=== PATIENT | female | born 1945 | race Caucasian/White ===

== ENCOUNTER 2017-07-22 08:58 | Day surgery (SDC) | payer MEDICARE, BC ==
[~2017-07-22] VITALS: Ht 152.4 cm; Wt 69.6 kg
[~2017-07-22 08:58] MED LIST: ALLO300T46 PO; ASPI-664 PO; CLON0.2T12 PO; COL250 PO; CRES10 PO; ESOM40CA PO; HUM100VI8; HYDR-3581 PO; LANTUS; METO-103 PO; SITA1TAB3 PO
[2017-07-22 10:37] VITALS: Ht 152.4 cm; Wt 69.6 kg
[2017-07-22] MEDS ORDERED: janumet PO (10:43)
[2017-07-22] MEDS ORDERED: lotrel PO (10:43)
[2017-07-22] MEDS ORDERED: diovan PO (10:43)
[2017-07-22] MEDS ORDERED: insulin SC (10:44)
[2017-07-22] MEDS ORDERED: LINA145C PO (10:44)
[2017-07-22] MEDS ORDERED: PROPOFOL 40 ML ONE (10:58)
[2017-07-22] MEDS ORDERED: LIDOCAINE 2% (SDV) 5 ML INJ ONE (10:58)
[2017-07-22 11:06] VITALS: BP 215/90; PULSE 63; RESP 13
[2017-07-22] MEDS ORDERED: hydrALAzine 20 MG INJ ONE (11:52)
[2017-07-22] MEDS ORDERED: MIDAZOLAM 1 MG/ML 2 ML INJ ONE (11:52)
--- NOTE | 2017-07-22 12:23 | OPPN ---
Date/Time of Note Date/Time of Note DATE: 07/22/17 TIME: 12:22 Operative Report Preoperative Diagnosis Chronic heartburn Change in bowel habit History of colon polyps Postoperative Diagnosis Gastroesophageal reflux disease Gastritis with erosions 2 sigmoid colon polyps were removed Internal hemorrhoids Operation/Procedure Performed Esophagogastroduodenoscopy and biopsy Colonoscopy and polypectomy Surgeon see signature line court assistant None Anesthesia: MAC Estimated blood loss: none Transfusion Required none Specimen Sigmoid polyps Grafts/Implants none Complications none TOMMY BATES MD Jul 22, 2017 12:23
[2017-07-22 12:50] VITALS: BP 179/92; PULSE 59; RESP 16
--- NOTE | 2017-07-23 13:24 | GILP ---
DATE OF PROCEDURE: NAME OF PROCEDURES: 1. Esophagogastroduodenoscopy and biopsy. 2. Colonoscopy and polypectomy. SURGEON: Deborah Freeman MD PREOPERATIVE DIAGNOSES: 1. Chronic heartburn. 2. Change in the bowel habit. 3. History of colon polyps. POSTOPERATIVE DIAGNOSES: 1. Gastroesophageal reflux disease. 2. Gastritis with erosions. 3. Gastric mucosal biopsies were taken for Helicobacter pylori test. 4. Colonoscopy all the way to the cecum. 5. Two small sigmoid colon polyps were removed using the snare and electrocautery. 6. Internal hemorrhoids. INDICATION FOR THE PROCEDURE: Mrs. Obi Jim is a 71-year-old female patient who had chr onic heartburn, not responding to therapy. Patient also noticed a change in the bowel habit. She h ad history of colon polyps. The patient was scheduled for endoscopy and colonoscopy for further denys luation. The procedures and possible complications are well explained to the patient. The patient understood and consented to the procedure. DESCRIPTION OF PROCEDURE: Under the influence of anesthesia, the gastroscope was carefully introduc ed into the esophagus and under direct vision, it was advanced to the stomach and through the pyloru s into the duodenal bulb and descending duodenum. FINDINGS: ESOPHAGUS: The patient had gastroesophageal reflux disease. STOMACH: She had gastritis with erosions. Gastric mucosal biopsies were taken for H. pylori test. DUODENUM: Normal. The colonoscope was carefully introduced in the rectum and under direct vision, it was advanced all the way to the cecum. FINDINGS: The patient had 2 small sigmoid colon polyps and they were removed using the snare and el ectrocautery. The patient had internal hemorrhoids. She tolerated the procedures very well and there was no complication from the procedures. At the en d of the procedures, she was awake with stable vital signs and she was discharged home to the care o f her family. IMPRESSION: Please see postoperative diagnoses. PLAN: 1. Continue Nexium. 2. Add Zantac 300 mg p.o. at bedtime. 3. Await histopathology reports. 4. Next screening colonoscopy in 10 years. Dictated By: DEBORAH THOMAS/KALIN Conf#: [id number] DID#: [id number]
== END 2017-07-22 14:20 | disposition home or self-care (01) ==
LOC: GIL 08:58
PROVIDERS: ATTEND Internal Medicine Gastroenterology
DX: R19.4 Change in bowel habit (principal); D12.5 Benign neoplasm of sigmoid colon; K21.9 Gastro-esophageal reflux disease without esophagitis; K29.70 Gastritis, unspecified, without bleeding; K64.8 Other hemorrhoids; E11.9 Type 2 diabetes mellitus without complications; I10 Essential (primary) hypertension; E78.5 Hyperlipidemia, unspecified
CPT/HCPCS: 43239; 45380; 82962; 87081; 88305; J0360; J2250